=== PATIENT | male | born 1985 | race Caucasian/White ===

== ENCOUNTER 2017-02-26 08:53 | Emergency (ER) | payer OTHER ==
[~2017-02-26] VITALS: Ht 185.4 cm; Wt 100.0 kg
[2017-02-26 10:00] VITALS: BP 144/86; PULSE 87; TEMP 98.1
== END 2017-02-26 10:02 | disposition home or self-care (01) ==
LOC: COL.ER 08:53
DX: M20.002 Unspecified deformity of left finger(s) (principal); X50.1XXA Overexertion from prolonged static or awkward postures, initial encounter; Y93.62 Activity, american flag or touch football; Y92.830 Public park as the place of occurrence of the external cause